=== PATIENT | female | born 1955 | race Native Hawaiian/Other Pacific Islander ===

== ENCOUNTER 2020-06-27 09:52 | Outpatient (CLI) | payer OTHER | END 2020-06-27 21:37 | disposition home or self-care (01) | LOC: INF 09:52 | PROVIDERS: ATTEND Internal Medicine | DX: Z23 Encounter for immunization (principal) | CPT/HCPCS: 96372 ==

== ENCOUNTER 2020-07-15 09:57 | Outpatient (CLI) | payer OTHER | END 2020-07-15 20:15 | disposition home or self-care (01) | LOC: INF 09:57 | PROVIDERS: ATTEND Internal Medicine | DX: Z23 Encounter for immunization (principal) | CPT/HCPCS: 96372 ==